=== PATIENT | female | born 2000 | race African-American/Black ===

== ENCOUNTER 2018-03-28 16:48 | Emergency (ER) | payer BC ==
[2018-03-28 18:10] LABS: Appearance,Urine Clear (Clear); Bilirubin,Urine Negative (Negative); Blood,Urine Negative (Negative); Color,Urine Yellow; Glucose,Urine (UA) Negative (Negative); Ketones,Urine Negative (Negative); Leukocyte Esterase,Urine Negative (Negative); Nitrite,Urine Negative (Negative); PH, Urine 6.5 (5.0-8.0); Protein,Urine Negative (Negative); Specific Gravity,Urine 1.017 (1.001-1.035); Urobilinogen,Urine <2.0 mg/dL (<2.0)
--- NOTE | 2018-03-28 19:09 | ED ---
Abdominal Pain HPI - General Chief Complaint: Abdominal Pain Stated Complaint: Abd pain/Female Time Seen by Provider: 03/28/18 18:12 Source: patient, RN notes reviewed Mode of arrival: ambulatory Limitations: no limitations - History of Present Illness Initial Comments: This is a 18-year-old female who presents to the emergency department with chief complaint of possible displaced IUD. Patient states that at the beginning of the year she had an appointment with her chiropractor. X-rays were obtained and revealed that her IUD was shifted sideways within the uterus. She states that she has been trying to follow-up with Dr. Miller but works a lot and has been unable to follow-up. She states that 3 days ago she developed lower abdominal cramping and can no longer locate the strings of her IUD. She states that when she moves she feels like something is poking her. She denies any fevers or chills, chest pain or shortness of breath, nausea or vomiting, diarrhea or constipation. - Related Data Allergies Allergy/AdvReac Type Severity Reaction Status Date / Time No Known Allergies Allergy Verified 03/28/18 17:20 Review of Systems ROS Statement: Those systems with pertinent positive or pertinent negative responses have been documented in the HPI. ROS Other: All systems not noted in ROS Statement are negative. Past Medical History Past Medical History: No Reported History Additional Past Medical History / Comment(s): IUD History of Any Multi-Drug Resistant Organisms: None Reported Past Surgical History: No Surgical Hx Reported Past Psychological History: No Psychological Hx Reported Smoking Status: Never smoker Past Alcohol Use History: Occasional Past Drug Use History: None Reported General Exam - General Exam Comments Initial Comments: General: Awake and alert, well-developed; in no apparent distress. HEENT: Head atraumatic, normocephalic. Pupils are equal, round and reactive to light. Extraocular movements intact. Oropharynx moist without erythema or exudate. Neck: Supple. Normal ROM. Cardiovascular: Regular rate and rhythm. No murmurs, rubs or gallops. Chest symmetrical. Respiratory: Lungs clear to auscultation bilaterally. No wheezes, rales or rhonchi. Normal respiratory effort with no use of accessory muscles. Abdomen: Soft, non-tender, non-distended. No rigidity, rebound or guarding. Normal bowel sounds in all 4 quadrants. Musculoskeletal: Normal ROM, no tenderness bilateral upper and lower extremities. Ambulating normally. Skin: [place], warm and dry without rashes or lesions. Neurological: Alert and oriented x3. CN II-XII grossly intact. Speech is fluent and answers are appropriate. No focal neuro deficits. Psychiatric: Normal mood and affect. No overt signs of depression or anxiety noted. Limitations: no limitations External exam: Present: normal external exam Speculum exam: Present: vaginal discharge (milky white ), other (two black IUD strings are noted exiting the cervical os). Absent: erythema, vaginal bleeding Course Vital Signs 03/28/18 03/28/18 17:16 20:20 Temperature 98.6 F 98.3 F Pulse Rate 88 77 Respiratory 16 18 Rate Blood Pressure 130/69 127/79 O2 Sat by Pulse 98 97 Oximetry Medical Decision Making - Medical Decision Making This is a 18-year-old female who presents to the emergency department with chief complaint of possible displaced IUD. Patient reports lower abdominal cramping for 3 days, she is unable to feel the strings of her IUD and feels that something is poking her. Pelvic exam was performed and IUD strings were identified leaving the cervical os. Transvaginal ultrasound revealed that the IUD is low in position and some findings suggest malpositioning with some degree of myometrial erosion. Dr. Keating was in contact with Dr. Mc who came into the emergency department and was able to remove the IUD successfully without complication. Patient's vital signs are stable and she is in no distress. She'll be discharged home at this time. - Lab Data Lab Results 03/28/18 03/28/18 Range/Units 17:50 17:50 Urine Color Yellow Urine Appearance Clear (Clear) Urine pH 6.5 (5.0-8.0) Ur Specific [place] 1.017 (1.001-1.035) Urine Protein Negative (Negative) Urine Glucose (UA) Negative (Negative) Urine Ketones Negative (Negative) Urine Blood Negative (Negative) Urine Nitrite Negative (Negative) Urine Bilirubin Negative (Negative) Urine Urobilinogen <2.0 (<2.0) mg/dL Ur Leukocyte Esterase Negative (Negative) Urine HCG, Qual Not Detected (Not Detectd) - Radiology Data Radiology results: report reviewed Transvaginal ultrasound impression: 1. IUD low in position along the lower uterine segment and tilted obliquely towards the right. Findings suggest malpositioning with some degree myometrial erosion. 2. Follicular change in both ovaries. X-ray KUB impression: The IUD is actually tilted towards the left, positioning recognizing crackly an ultrasound performed earlier today. However, given the findings on ultrasound of the patient's inability to locate the IUD, findings remain suggestive of IUD positioning due to myometrial erosion. Disposition Clinical Impression: Malpositioned IUD Disposition: HOME SELF-CARE Condition: Good Instructions: Hormonal Contraceptives (ED) Additional Instructions: Please follow up with primary care provider within 1-2 days. Return to emergency department if symptoms should worsen or any concerns arise. Is patient prescribed a controlled substance at d/c from ED?: No Referrals: Cristopher Thompson DO [Primary Care Provider] - 1-2 days Time of Disposition: 20:52
--- NOTE | 2018-03-28 20:00 | US ---
EXAMINATION TYPE: US transvaginal plus dopplers DATE OF EXAM: 03/28/2018 COMPARISON: NONE CLINICAL HISTORY: 18 year-old female with Pain. Patient states having an xray and IUD is misplaced. Hx of IUD x 1.5 years. Left side pain x few days. TECHNIQUE: Transvaginal (TV). Color Doppler and spectral waveform analysis of the ovarian arteries and veins. Date of LMP: 03/07/2018, G0 FINDINGS: EXAM MEASUREMENTS: Uterus: 7.8 x 4.7 x 3.5 cm Endometrial Stripe: 0.9 cm Right Ovary: 3.3 x 1.9 x 1.9 cm Left Ovary: 3.7 x 2.8 x 2.8 cm 1. Uterus: Anteverted wnl 2. Endometrium: IUD seen in PRIYANKA region and tilted obliquely towards the right. 3. Right Ovary: Follicles seen 4. Left Ovary: follicles seen. Hypoechoic area measures 2.1 x 1.6 x 1.3 cm probably represents a hem orrhagic corpus luteum. Spectral, color and waveform doppler imaging shows good arterial and venous flow within the ovaries ; there is no evidence for ovarian torsion. 5. Bilateral Adnexa: wnl 6. Posterior cul-de-sac: no free fluid Cervix- wnl IMPRESSION: 1. IUD low in position along the lower uterine segment and tilted obliquely towards the right. Findin gs suggest malpositioning with some degree of myometrial erosion. 2. Follicular change in both ovaries.
--- NOTE | 2018-03-28 20:26 | XR ---
EXAMINATION TYPE: XR KUB DATE OF EXAM: 03/28/2018 CLINICAL DATA: 18-year-old female with lower abdominal pain for 3 days, [facility] COMPARISON: Correlation ultrasound same day FINDINGS: Lung bases are clear. No evidence for free intraperitoneal air. No dilated small bowel or air-fluid levels. Scattered air and stool seen throughout the colon extendi ng distally into the rectum. Mild stool burden. No suspicious calcifications identified. IUD is identified in the mid pelvis tilted towards the left. IMPRESSION: 1. The IUD is actually tilted towards the left, positioning recognized incorrectly on the ultrasound performed earlier today. 2. However, given the findings on ultrasound and the patient's inability to locate the IUD, findings remain suggestive of IUD malpositioning due to myometrial erosion.
[2018-03-28 20:32] VITALS: RESP 18
--- NOTE | 2018-03-28 21:00 | P.PN ---
Progress Note - Text Progress Note Date: 03/28/18 Cari is seen and evaluated in the emergency room. She relates that she was seen by her chiropractor and x-rays were taken and revealed what appeared to be an IUD out of position. Therefore she came to the emergency room where an ultrasound verified IUD was in the lower uterine segment. In discussing with her she would like for the IUD removed and it was removed without difficulty in the emergency room. Having her position in the dorsal lithotomy position a speculum was used and strings were easily identified and grasped with a forceps and with gentle traction removed without difficulty. A prescription was then provided for Lutera for control she is going to start that on Friday she is aware to use every day at approximately same time of day instructions for use were discussed with her and her mother and all questions are answered. She is stable and will be discharged home shortly.
[2018-03-28 21:12] VITALS: BP 114/71; PULSE 72; TEMP 97.7
== END 2018-03-28 21:11 | disposition home or self-care (01) ==
LOC: EC 16:48
DX: T83.32XA Displacement of intrauterine contraceptive device, initial encounter (principal)
CPT/HCPCS: 74018; 76830; 81003; 81025; 93975; 99284

== ENCOUNTER → 2019-06-30 | Outpatient (CLI) | payer BC ==
--- NOTE | 2019-06-30 09:31 | CT ---
EXAMINATION TYPE: CT brain wo con DATE OF EXAM: 06/30/2019 COMPARISON: None. HISTORY: OLIVEROS for [address] DLP: 1036 mGycm. Automated Exposure Control for Dose Reduction was Utilized. TECHNIQUE: CT scan of the head is performed without contrast. FINDINGS: There is no acute intracranial hemorrhage, mass effect, or midline shift identified. The ventricles and sulci are within normal limits in size. [place]-white matter differentiation is maintain ed. Slightly low-lying cerebellar tonsils sagittal image 28 for reference. The globes are intact and the visualized sinuses are clear. IMPRESSION: No acute intracranial hemorrhage or midline shift is seen. Slightly low-lying cerebellar tonsils, not definitive greater than 5 mm inferior decent. This could be better evaluated with nonem ergent brain MRI is desired.
== END | disposition home or self-care (01) ==
LOC: RADCTMAIN 09:09
PROVIDERS: ATTEND Physician Assistant
DX: R51 Headache (principal)
CPT/HCPCS: 70450

== ENCOUNTER → 2019-07-17 | Outpatient (CLI) | payer BC ==
--- NOTE | 2019-07-17 07:57 | MR ---
EXAMINATION TYPE: MR brain wo con DATE OF EXAM: 07/17/2019 7:32 AM. COMPARISON: NONE. HISTORY: Headache Technique: Multiplanar, multiecho imaging of the brain was obtained without intravenous contrast. FINDINGS: The cerebellar tonsils extend 3.2 mm below the foramen magnum. This is within normal limit s. Midline structures are otherwise unremarkable. Echoplanar diffusion imaging is normal. There are normal vascular flow voids. The orbits are unremarkable. There is no evidence of a CP angle mass lesion. No acute focal lesion, mass effect or midline shift is seen. I do not see evidence of intracranial bl ood. IMPRESSION: SLIGHTLY LOW-LYING CEREBELLAR TONSILS WITHOUT OTHER DISCRETE ABNORMALITY.
== END | disposition home or self-care (01) ==
LOC: RADMRIMAIN 06:56
PROVIDERS: ATTEND Physician Assistant
DX: J35.8 Other chronic diseases of tonsils and adenoids (principal)
CPT/HCPCS: 70551

== ENCOUNTER → 2021-09-21 | Outpatient (CLI) | payer BC, OTHER ==
--- NOTE | 2021-09-21 16:23 | US ---
EXAMINATION TYPE: US pelvis complete transvag DATE OF EXAM: 09/21/2021 COMPARISON: NONE CLINICAL HISTORY: N91.1 SECONDARY AMENORRHEA. pelvic cramping TECHNIQUE: Transvaginal (TV) and Transabdominal (TA) . Transabdominal sonographic images of the pel vis were acquired. Transvaginal sonographic images were medically necessary to better assess the fol lowing anatomy: per order Date of LMP: 5 months ago EXAM MEASUREMENTS: Uterus: 6.2 x 3.5 x 5.0 cm Endometrial Stripe: 0.6 cm Right Ovary: 3.5 x 2.3 x 2.4 cm Left Ovary: 3.6 x 1.9 x 2.0 cm 1. Uterus: Anteverted small amount of fluid cervical canal. nabothian cyst 2. Endometrium: appears wnl 3. Right Ovary: follicles noted 4. Left Ovary: follicles noted 5. Bilateral Adnexa: wnl 6. Posterior cul-de-sac: wnl IMPRESSION: Endometrial stripe is thinned for secretory phase of menstrual cycle. No suspicious ovari an or adnexal masses seen. Ovaries are symmetric and normal in size.
[2021-09-22 02:39] LABS: Follicle Stimulating Hormone 7.2 mIU/mL; Luteinizing Hormone 12.9 mIU/mL
--- NOTE | 2021-09-24 08:29 | USB ---
Reason for exam: clinical finding. Physical Findings: Nurse did not find any significant physical abnormalities on exam. US Breast BILAT Right complete breast ultrasound includes all four quadrants, the retroareolar region and axilla. Finding demonstrates no cystic or solid lesion seen. Left complete breast ultrasound includes all four quadrants, the retroareolar region and axilla. Finding demonstrates no cystic or solid lesion seen. These results were verbally communicated with the patient and result sheet given to the patient on 09/21/21. ASSESSMENT: Negative, BI-RAD 1 RECOMMENDATION: Clinical management of both breasts. Manage patient on a clinical basis.
== END | disposition home or self-care (01) ==
LOC: RADUSWWP 14:48
PROVIDERS: ATTEND Family Medicine
DX: N91.1 Secondary amenorrhea (principal); R10.2 Pelvic and perineal pain
CPT/HCPCS: 36415; 76830; 76856; 83001; 83002; 84146; 84443